=== PATIENT | female | born 1935 | race Two or more races ===

== ENCOUNTER 2021-05-08 09:16 | Outpatient (CLI) | payer MEDICARE, OTHER ==
[2021-05-08 10:45] LABS: BASOPHILS # (AUTO) 0.1 K/uL (0.0-0.2); BASOPHILS % (AUTO) 0.6 % (0.0-2.0); EOSINOPHILS % (AUTO) 1.9 % (0.0-6.0); HEMATOCRIT 43 % (33-45); HEMOGLOBIN 13.9 g/dL (11.5-14.8); LYMPHOCYTES # (AUTO) 1.7 K/uL (0.8-4.8); LYMPHOCYTES % (AUTO) 18.5 % (20.0-44.0); MEAN CORPUSCULAR HGB CONC 32 g/dl (31.0-36.0); MEAN CORPUSCULAR VOLUME 101 fL (82-100); MONOCYTES # (AUTO) 0.9 K/uL (0.1-1.30); MONOCYTES % (AUTO) 9.4 % (2.0-12.0); NEUTROPHILS # (AUTO) 6.5 K/uL (1.8-8.9); NEUTROPHILS % (AUTO) 69.6 % (43.0-81.0); PLATELET COUNT (AUTO) 224 K/uL (150-450); WHITE BLOOD COUNT (AUTO) 9.3 K/uL (4.3-11.0)
[2021-05-08 10:58] LABS: ALANINE AMINOTRANSFERASE 18 U/L (12-78); ALBUMIN 3.3 g/dL (3.4-5.0); ALKALINE PHOSPHATASE 76 U/L (46-116); ASPARTATE AMINOTRANSFERASE 15 U/L (15-37); BILIRUBIN,TOTAL 0.4 mg/dL (0.2-1.0); CARBON DIOXIDE 31 mmol/L (21-32); CHLORIDE 104 mmol/L (98-107); CREATININE 1.4 mg/dL (0.6-1.3); GLUCOSE 198 mg/dL (74-106); MAGNESIUM 2.2 mg/dL (1.8-2.4); PHOSPHORUS 3.1 mg/dL (2.5-4.9); POTASSIUM 4.2 mmol/L (3.5-5.1); SODIUM SERUM 141 mmol/L (136-145); TOTAL PROTEIN, SERUM 7.8 g/dL (6.4-8.2); UREA NITROGEN, BLOOD 17 mg/dL (7-18)
[2021-05-08 11:13] LABS: C-REACTIVE PROTEIN 0.2 mg/dL (0.0-0.9); CHOLESTEROL 179 mg/dL (<200); HDL CHOLESTEROL 30 mg/dL (40-60); LDL 125 mg/dL (0-99); PREALBUMIN 20.9 MG/DL (18.0-35.7); THYROID STIMULATING HORMONE 4.558 uIU/mL (0.358-3.74); TRIGLYCERIDES 151 mg/dL (30-150)
== END 2021-05-08 23:59 | disposition home or self-care (01) ==
LOC: MSC 09:16
PROVIDERS: ATTEND Internal Medicine
DX: R22.41 Localized swelling, mass and lump, right lower limb (principal); Z74.09 Other reduced mobility; J34.81 Nasal mucositis (ulcerative); Z85.828 Personal history of other malignant neoplasm of skin; R41.89 Other symptoms and signs involving cognitive functions and awareness; I25.10 Atherosclerotic heart disease of native coronary artery without angina pectoris; I10 Essential (primary) hypertension; E11.9 Type 2 diabetes mellitus without complications; Z79.84 Long term (current) use of oral hypoglycemic drugs; K21.9 Gastro-esophageal reflux disease without esophagitis; E78.5 Hyperlipidemia, unspecified; M10.9 Gout, unspecified; E03.9 Hypothyroidism, unspecified; Z79.890 Hormone replacement therapy; R63.0 Anorexia; R53.81 Other malaise; Z79.899 Other long term (current) drug therapy
CPT/HCPCS: 36415; 80053; 80061; 82040; 83036; 83735; 84100; 84134; 84439; 84443; 85025; 85652; 86140; A7048; G0463

== ENCOUNTER 2021-05-11 09:00 | Outpatient (CLI) | payer MEDICARE, OTHER | END 2021-05-11 23:59 | disposition home or self-care (01) | LOC: WOU 09:00 | PROVIDERS: ATTEND Podiatrist Foot & Ankle Surgery | DX: B35.1 Tinea unguium (principal); B35.3 Tinea pedis; E11.9 Type 2 diabetes mellitus without complications; M79.675 Pain in left toe(s); M79.674 Pain in right toe(s); Z79.82 Long term (current) use of aspirin | CPT/HCPCS: G0463 ==

== ENCOUNTER → 2021-05-11 | Outpatient (CLI) | payer MEDICARE, MEDICAID | END | disposition home or self-care (01) | LOC: CARD 09:11 | PROVIDERS: ATTEND Internal Medicine | DX: R60.9 Edema, unspecified (principal); M79.606 Pain in leg, unspecified | CPT/HCPCS: 93970-TC ==

== ENCOUNTER 2022-03-05 10:13 | Outpatient (CLI) | payer MEDICARE, OTHER ==
[2022-03-05 11:57] LABS: BASOPHILS # (AUTO) 0.1 K/uL (0.0-0.2); BASOPHILS % (AUTO) 0.8 % (0.0-2.0); EOSINOPHILS % (AUTO) 2.1 % (0.0-6.0); HEMATOCRIT 38 % (33-45); HEMOGLOBIN 12.6 g/dL (11.5-14.8); LYMPHOCYTES # (AUTO) 1.6 K/uL (0.8-4.8); LYMPHOCYTES % (AUTO) 16.5 % (20.0-44.0); MEAN CORPUSCULAR HGB CONC 33 g/dl (31.0-36.0); MEAN CORPUSCULAR VOLUME 98 fL (82-100); MONOCYTES # (AUTO) 0.8 K/uL (0.1-1.30); MONOCYTES % (AUTO) 8.5 % (2.0-12.0); NEUTROPHILS # (AUTO) 6.8 K/uL (1.8-8.9); NEUTROPHILS % (AUTO) 72.1 % (43.0-81.0); PLATELET COUNT (AUTO) 243 K/uL (150-450); RED BLOOD CELL COUNT(AUTO) 3.84 MIL/uL (4.0-5.2); WHITE BLOOD COUNT (AUTO) 9.4 K/uL (4.3-11.0)
[2022-03-05 12:13] LABS: IRON, SERUM 47 ug/dl (50-175); TOTAL IRON BINDING CAPACITY 233 ug/dl (250-450)
[2022-03-05 12:30] LABS: CHOLESTEROL 154 mg/dL (<200); FERRITIN 48 ng/mL (8-388); FREE T4 (FREE THYROXINE) 1.12 ng/dL (0.76-1.46); HDL CHOLESTEROL 32 mg/dL (40-60); LDL 102 mg/dL (0-99); THYROID STIMULATING HORMONE 3.195 uIU/mL (0.358-3.74); TRIGLYCERIDES 174 mg/dL (30-150)
[2022-03-05 12:31] LABS: C-REACTIVE PROTEIN 1.8 mg/dL (0.0-0.9)
[2022-03-05 12:37] LABS: ALANINE AMINOTRANSFERASE 12 U/L (12-78); ALBUMIN 3.2 g/dL (3.4-5.0); ALKALINE PHOSPHATASE 95 U/L (46-116); ASPARTATE AMINOTRANSFERASE 9 U/L (15-37); BILIRUBIN,TOTAL 0.3 mg/dL (0.2-1.0); CALCIUM, SERUM 9.1 mg/dL (8.5-10.1); CARBON DIOXIDE 32 mmol/L (21-32); CHLORIDE 100 mmol/L (98-107); CREATININE 1.8 mg/dL (0.6-1.3); GLUCOSE 231 mg/dL (74-106); MAGNESIUM 2.3 mg/dL (1.8-2.4); PHOSPHORUS 3.5 mg/dL (2.5-4.9); POTASSIUM 4.3 mmol/L (3.5-5.1); SODIUM SERUM 137 mmol/L (136-145); TOTAL PROTEIN, SERUM 7.6 g/dL (6.4-8.2); UREA NITROGEN, BLOOD 31 mg/dL (7-18)
== END 2022-03-05 23:59 | disposition home or self-care (01) ==
LOC: MSC 10:13
PROVIDERS: ATTEND Internal Medicine
DX: R60.0 Localized edema (principal); R41.89 Other symptoms and signs involving cognitive functions and awareness; R63.0 Anorexia; Z85.828 Personal history of other malignant neoplasm of skin; Z87.440 Personal history of urinary (tract) infections; I25.10 Atherosclerotic heart disease of native coronary artery without angina pectoris; I10 Essential (primary) hypertension; E11.9 Type 2 diabetes mellitus without complications; Z79.84 Long term (current) use of oral hypoglycemic drugs; K21.9 Gastro-esophageal reflux disease without esophagitis; E78.5 Hyperlipidemia, unspecified; M10.9 Gout, unspecified; E03.9 Hypothyroidism, unspecified; Z79.890 Hormone replacement therapy; R53.81 Other malaise; Z79.899 Other long term (current) drug therapy
CPT/HCPCS: 36415; 80053; 80061; 82607; 82728; 82746; 83036; 83540; 83735; 84100; 84439; 84443; 85025; 85652; 86140; G0463

== ENCOUNTER 2022-07-02 14:30 | Outpatient (CLI) | payer MEDICARE, OTHER | END 2022-07-02 23:59 | disposition home or self-care (01) | LOC: MSC 14:30 | PROVIDERS: ATTEND Internal Medicine | DX: R60.0 Localized edema (principal); Z85.828 Personal history of other malignant neoplasm of skin; I25.10 Atherosclerotic heart disease of native coronary artery without angina pectoris; I10 Essential (primary) hypertension; E11.9 Type 2 diabetes mellitus without complications; Z79.84 Long term (current) use of oral hypoglycemic drugs; K21.9 Gastro-esophageal reflux disease without esophagitis; E78.5 Hyperlipidemia, unspecified; R41.89 Other symptoms and signs involving cognitive functions and awareness; M10.9 Gout, unspecified; E03.9 Hypothyroidism, unspecified; Z79.890 Hormone replacement therapy; R53.81 Other malaise; R63.0 Anorexia; Z87.440 Personal history of urinary (tract) infections; Z79.899 Other long term (current) drug therapy ==

== ENCOUNTER 2023-01-07 11:51 | Outpatient (CLI) | payer MEDICARE, OTHER | END 2023-01-07 23:59 | disposition home or self-care (01) | LOC: MSC 11:51 | PROVIDERS: ATTEND Internal Medicine | DX: F03.90 Unspecified dementia, unspecified severity, without behavioral disturbance, psychotic disturbance, mood disturbance, and anxiety (principal); I25.10 Atherosclerotic heart disease of native coronary artery without angina pectoris; I10 Essential (primary) hypertension; E11.9 Type 2 diabetes mellitus without complications; Z79.84 Long term (current) use of oral hypoglycemic drugs; Z85.828 Personal history of other malignant neoplasm of skin; K21.9 Gastro-esophageal reflux disease without esophagitis; E78.5 Hyperlipidemia, unspecified; R41.89 Other symptoms and signs involving cognitive functions and awareness; M10.9 Gout, unspecified; E03.9 Hypothyroidism, unspecified; Z79.890 Hormone replacement therapy; R53.81 Other malaise; Z87.440 Personal history of urinary (tract) infections; Z79.899 Other long term (current) drug therapy ==

== ENCOUNTER → 2023-07-18 | Outpatient (CLI) | payer MEDICARE, OTHER | END | disposition home or self-care (01) | LOC: MSC 14:00 | PROVIDERS: ATTEND Internal Medicine | DX: Z09 Encounter for follow-up examination after completed treatment for conditions other than malignant neoplasm (principal); R82.998 Other abnormal findings in urine; Z87.440 Personal history of urinary (tract) infections; E11.22 Type 2 diabetes mellitus with diabetic chronic kidney disease; I12.9 Hypertensive chronic kidney disease with stage 1 through stage 4 chronic kidney disease, or unspecified chronic kidney disease; N18.4 Chronic kidney disease, stage 4 (severe); Z79.84 Long term (current) use of oral hypoglycemic drugs; F03.90 Unspecified dementia, unspecified severity, without behavioral disturbance, psychotic disturbance, mood disturbance, and anxiety; I25.10 Atherosclerotic heart disease of native coronary artery without angina pectoris; Z85.828 Personal history of other malignant neoplasm of skin; K21.9 Gastro-esophageal reflux disease without esophagitis; E78.5 Hyperlipidemia, unspecified; M10.9 Gout, unspecified; E03.9 Hypothyroidism, unspecified; R53.81 Other malaise ==